=== PATIENT | female | born 1960 | race Caucasian/White ===

== ENCOUNTER → 2016-10-18 | Outpatient (CLI) | payer BC ==
[~2016-10-18] MED LIST: ASPIR-LOW81 MG PO; CELEXA 20MG20 MG/TAB PO; NORCO 325 MG-51 TAB PO; PRILOSEC10 MG PO; SIMVASTATIN10 MG PO; TYLENOL 325MG325 MG PO; ZOCOR 10MG10 MG PO
== END ==
LOC: MC.RAD 09:58
DX: Z12.31 Encounter for screening mammogram for malignant neoplasm of breast (principal)

== ENCOUNTER → 2018-02-19 | Outpatient (CLI) | payer BC | LOC: MC.RAD 10:58 | DX: Z12.31 Encounter for screening mammogram for malignant neoplasm of breast (principal); Z98.890 Other specified postprocedural states ==

== ENCOUNTER → 2019-04-01 | Outpatient (CLI) | payer BC | LOC: MC.RAD 13:29 | DX: Z12.31 Encounter for screening mammogram for malignant neoplasm of breast (principal) ==

== ENCOUNTER → 2020-04-07 | Outpatient (CLI) | payer BC | LOC: MC.RAD 09:25 | DX: Z12.31 Encounter for screening mammogram for malignant neoplasm of breast (principal) ==

== ENCOUNTER → 2021-05-25 | Outpatient (CLI) | payer BC | LOC: MC.RAD 04-13 10:30 | DX: Z12.31 Encounter for screening mammogram for malignant neoplasm of breast (principal) ==

== ENCOUNTER → 2023-02-16 | Outpatient (CLI) | payer BC | LOC: MC.RAD 09:11 | DX: Z12.31 Encounter for screening mammogram for malignant neoplasm of breast (principal); N64.89 Other specified disorders of breast ==

== ENCOUNTER → 2023-03-02 | Outpatient (CLI) | payer BC | LOC: MC.RAD 10:40 | DX: R92.8 Other abnormal and inconclusive findings on diagnostic imaging of breast (principal) ==